=== PATIENT | female | born 1990 | race Caucasian/White ===

== ENCOUNTER 2017-07-20 15:58 | Outpatient (CLI) | payer OTHER | END 2017-07-20 15:59 | disposition EMS.NT | LOC: EMS 15:58 | PROVIDERS: ATTEND Surgery | DX: R11.2 Nausea with vomiting, unspecified (principal); R50.9 Fever, unspecified; R10.9 Unspecified abdominal pain ==

== ENCOUNTER 2017-07-20 16:41 | Emergency (ER) | payer OTHER ==
[2017-07-20] MEDS ORDERED: HYDROmorphone 1 MG/ML CARPUJECT IVP STA (16:57)
[2017-07-20] MEDS ORDERED: ONDANSETRON 4 MG/2 ML VIAL IVP STA (16:57)
[2017-07-20] MEDS ORDERED: SODIUM CHLORIDE 0.9% 1,000 ML IV ONE (16:57)
--- NOTE | 2017-07-20 16:59 | ED Physician Documentation ---
PD HPI ABD PAIN - Stated complaint Stated Complaint: ABD PX - Chief complaint Chief Complaint: Abd Pain - History obtained from History obtained from: Patient - History of Present Illness Timing - onset: Other (She awoke at 4 AM this morning with pelvic cramping more on the right than the left, she thought it was just menstrual cramps but got worse throughout the day and was associated with chills and generalized weakness and nausea. She has not been able to eat anything all day. She also has generalized myalgias. She denies any shortness of breath,, cough, runny nose, sore throat.) Review of Systems Constitutional: reports: Fever, Chills, Myalgias, Fatigue Nose: denies: Rhinorrhea / runny nose Throat: denies: Sore throat GI: reports: Abdominal Pain, Nausea. denies: Vomiting : denies: Dysuria, Frequency PD PAST MEDICAL HISTORY - Past Medical History Past Medical History: No - Past Surgical History Past Surgical History: No - Present Medications Home Medications: Ambulatory Orders Medication Instructions Recorded Confirmed Cyclobenzaprine [Flexeril] 10 mg PO TID PRN 07/20/17 07/20/17 Ondansetron HCl [Zofran] 4 mg PO Q6H PRN #10 tablet 07/20/17 - Allergies Allergies/Adverse Reactions: Allergies Allergy/AdvReac Type Severity Reaction Status Date / Time No Known Drug Allergies Allergy Verified 07/20/17 16:53 - Social History Does the pt smoke?: No Smoking Status: Current some day smoker Does the pt drink ETOH?: No Does the pt have substance abuse?: No - Immunizations Immunizations are current?: Yes PD ED PE NORMAL - Vitals Vital signs reviewed: Yes (Febrile and tachycardic) - General General: Alert and oriented X 3, No acute distress - HEENT HEENT: PERRL, EOMI, Pharynx benign - Neck Neck: Supple, no meningeal sign, No bony TTP - Cardiac Cardiac: RRR, No murmur - Respiratory Respiratory: No respiratory distress, Clear bilaterally - Abdomen Abdomen: Other (She is tender over the right CVA, more so than the pelvis, she has nonlateralizing mild pelvic tenderness.) - Back Back: No spinal TTP - Derm Derm: Normal color, Warm and dry - Extremities Extremities: No edema, No calf tenderness / cord - Neuro Neuro: Alert and oriented X 3, Normal speech Results - Vitals Vitals: Vital Signs - 24 hr 07/20/17 07/20/17 16:46 18:42 Temperature 37.7 C H 37.7 C H Heart Rate 113 H 99 Respiratory 16 12 Rate Blood Pressure 136/72 H 101/53 L O2 Saturation 100 99 Oxygen O2 Source Room air - Labs Labs: Laboratory Tests 07/20/17 07/20/17 07/20/17 17:06 17:06 17:06 WBC 10.3 RBC 4.41 Hgb 13.3 Hct 38.7 MCV 87.9 MCH 30.2 MCHC 34.3 RDW 12.6 Plt Count 182 MPV 9.1 Neut # 9.5 H Lymph # 0.5 L [place] # 0.3 Eos # 0.0 Baso # 0.0 Absolute Nucleated RBC 0.00 Nucleated RBC % 0.0 Sodium 136 Potassium 2.7 L Chloride 106 Carbon Dioxide 20 L Anion Gap 10.0 BUN 14 Creatinine 0.8 Estimated GFR (MDRD) 85 L Glucose 117 H Lactic Acid 2.4 H Calcium 8.8 Total Bilirubin 0.9 AST 22 ALT 17 Alkaline Phosphatase 33 L Total Protein 6.9 Albumin 4.4 Globulin 2.5 Albumin/Globulin Ratio 1.8 Lipase 14 L Urine Color Urine Clarity Urine pH Ur Specific [place] Urine Protein Urine Glucose (UA) Urine Ketones Urine Occult Blood Urine Nitrite Urine Bilirubin Urine Urobilinogen Ur Leukocyte Esterase Ur Microscopic Review Urine Culture Comments Urine HCG, Qual Influenza A (Rapid) Influenza B (Rapid) Influenza Types A,B Ag 07/20/17 07/20/17 17:45 18:30 WBC RBC Hgb Hct MCV MCH MCHC RDW Plt Count MPV Neut # Lymph # [place] # Eos # Baso # Absolute Nucleated RBC Nucleated RBC % Sodium Potassium Chloride Carbon Dioxide Anion Gap BUN Creatinine Estimated GFR (MDRD) Glucose Lactic Acid Calcium Total Bilirubin AST ALT Alkaline Phosphatase Total Protein Albumin Globulin Albumin/Globulin Ratio Lipase Urine Color YELLOW Urine Clarity CLEAR Urine pH 8.5 H Ur Specific [place] 1.020 Urine Protein NEGATIVE Urine Glucose (UA) NEGATIVE Urine Ketones 15 H Urine Occult Blood TRACE-LYSE Urine Nitrite NEGATIVE Urine Bilirubin NEGATIVE Urine Urobilinogen 0.2 (NORMAL) Ur Leukocyte Esterase NEGATIVE Ur Microscopic Review NOT INDICATED Urine Culture Comments NOT INDICATED Urine HCG, Qual NEGATIVE Influenza A (Rapid) Negative Influenza B (Rapid) Negative Influenza Types A,B Ag - - Rads (name of study) CT A/P Radiology: EMP read contemporaneously (normal appendix. Renal stone L side) PD MEDICAL DECISION MAKING - ED course ED course: 27-year-old woman presents with cramps, fever, pelvic pain. Her examination is benign except for the fever. Kind of surprisingly her flu was negative and given that her urinalysis was also normal this was followed by CT which was negative for acute findings. She was feeling much better after medications here.. Departure - Departure Disposition: 01 Home, Self Care Clinical Impression: Abdominal pain Qualifiers: Abdominal location: lower abdomen, unspecified Qualified Code(s): R10.30 - Lower abdominal pain, unspecified Fever Qualifiers: Fever type: due to other condition Qualified Code(s): R50.81 - Fever presenting with conditions classified elsewhere Condition: Good Record reviewed to determine appropriate education?: Yes Instructions: Abdominal Pain, ED Fever Unconf Cause Prescriptions: Ondansetron HCl [Zofran] 4 mg PO Q6H PRN #10 tablet PRN Reason: Nausea / Vomiting Comments: Ibuprofen as needed for cramps or fever. Return in 12-24 hours if not better, anytime if worse or if new symptoms develop.
[2017-07-20 17:12] LABS: BASOPHILS % (AUTO) 0.1 %; EOSINOPHILS % (AUTO) 0.2 %; HGB - HEMOGLOBIN 13.3 g/dL (12.0-16.0); LYMPHOCYTES # (AUTO) 0.5 10^3/uL (1.5-3.5); LYMPHOCYTES % (AUTO) 4.6 %; MEAN CORPUSCULAR HEMOGLOBIN 30.2 pg (27.0-31.0); MEAN CORPUSCULAR HGB CONC 34.3 g/dL (32.0-36.0); MEAN CORPUSCULAR VOLUME 87.9 fL (81.0-99.0); MEAN PLATELET VOLUME 9.1 fL (7.9-10.8); MONOCYTES # (AUTO) 0.3 10^3/uL (0.0-1.0); MONOCYTES % (AUTO) 3.4 %; NEUTROPHILS # (AUTO) 9.5 10^3/uL (1.5-6.6); NEUTROPHILS % (AUTO) 91.7 %; PLT - PLATELET COUNT 182 10^3/uL (130-450); RED BLOOD COUNT 4.41 10^6/uL (4.20-5.40); RED CELL DISTRIBUTION WIDTH 12.6 % (12.0-15.0); WHITE BLOOD COUNT 10.3 x10^3/uL (4.8-10.8)
[2017-07-20 17:26] LABS: ALBUMIN 4.4 g/dL (3.2-5.5); ALBUMIN/GLOBULIN RATIO 1.8 (1.0-2.2); BILIRUBIN,TOTAL 0.9 mg/dL (0.2-1.0); CALCIUM 8.8 mg/dL (8.5-10.3); CREATININE 0.8 mg/dL (0.4-1.0); TOTAL PROTEIN 6.9 g/dL (6.7-8.2)
[2017-07-20] MEDS ORDERED: KETOROLAC 60 MG/2 ML VIAL IVP STA (17:41)
[2017-07-20 18:07] LABS: BILIRUBIN,URINE NEGATIVE (NEGATIVE); GLUCOSE, URINE (UA) NEGATIVE (NEGATIVE); KETONES,URINE (UA) 15 mg/dL (NEGATIVE); LEUKOCYTE ESTERASE, URINE NEGATIVE (NEGATIVE); NITRITE,URINE NEGATIVE (NEGATIVE); OCCULT BLOOD,URINE TRACE-LYSE (NEGATIVE); PH,URINE 8.5 PH (5.0-7.5); PROTEIN,URINE NEGATIVE (NEGATIVE); UROBILINOGEN,URINE 0.2 (NORMAL) E.U./dL (NORMAL)
[2017-07-20 18:10] LABS: CLARITY,URINE CLEAR (CLEAR); HCG UR QUAL NEGATIVE
[2017-07-20] MEDS ORDERED: POTASSIUM BICARB 25 MEQ TABLET PO STA (18:37)
[2017-07-20] MEDS ORDERED: IOPAMIDOL-300 100 ML VIAL ONE (20:12)
[2017-07-20] MEDS ORDERED: IOPAMIDOL-300 100 ML VIAL IVP ONE (20:49)
--- NOTE | 2017-07-20 21:09 | CT Report ---
EXAM: CT ABDOMEN AND PELVIS EXAM DATE: 07/20/2017 08:36 PM. CLINICAL HISTORY: Abdominal pain COMPARISONS: None. TECHNIQUE: Routine helical CT imaging was performed through the abdomen and pelvis. IV contrast: ISOV UE 300 100mL. Enteric contrast: No. Reconstructions: Coronal and sagittal. In accordance with CT protocol optimization, one or more of the following dose reduction techniques w ere utilized for this exam: automated exposure control, adjustment of mA and/or KV based on patient s ize, or use of iterative reconstructive technique. FINDINGS: Lung Bases: Unremarkable. Liver: Normal. No masses. Gallbladder/Bile Ducts: Unremarkable. Spleen: Normal. Pancreas: Normal. Adrenal Glands: Normal. Kidneys: There is a small nonobstructing stones in the mid left kidney. There is no evidence of dista l obstructing stone or hydronephrosis. Peritoneal Cavity/Bowel: No dilated or thick-walled bowel is seen. There is a small amount of free fl uid within bilateral quadrant. There is no intraperitoneal free air. There are no enlarged mesenteric or retroperitoneal lymph nodes. The appendix is well visualized and normal. Pelvic Organs: Uterus and adnexa demonstrate no significant abnormalities. Urinary bladder is decompr essed. Vasculature: No aneurysms or other significant abnormality. Bones: No significant abnormality. Other: None. IMPRESSION: 1. No acute CT abnormalities to account for the patient's presentation. There is no evidence of bowel obstruction or appendicitis. 2. There is left nephrolithiasis. No evidence of obstructing stone or hydronephrosis. [facility] Referring Provider Line: [phone] SITE ID: [id number]
[2017-07-20 21:41] VITALS: BP 109/63
== END 2017-07-20 21:40 | disposition home or self-care (01) ==
LOC: ED 16:41
DX: R10.30 Lower abdominal pain, unspecified (principal); R50.81 Fever presenting with conditions classified elsewhere; F17.200 Nicotine dependence, unspecified, uncomplicated
CPT/HCPCS: 36415; 74177; 80053; 81003; 81025; 83605; 83690; 85025; 87275; 87276; 96361; 96374; 96375; 99283; 99284; A9270; Q9967; 81001; 87086